=== PATIENT | female | born 1975 | race Hispanic/Latino ===

== ENCOUNTER 2024-09-22 23:29 | Emergency (ER) | payer SELFPAY ==
[~2024-09-22] VITALS: Ht 157.5 cm; Wt 88.7 kg
[2024-09-22] MEDS ORDERED: IBUPROFEN 600 MG TAB ONE (23:41)
[2024-09-22] MEDS: IBUPROFEN 600 MG TAB PO STA (23:51)
[2024-09-23 00:38] LABS: BILIRUBIN,URINE NEGATIVE (NEGATIVE); CLARITY,URINE CLEAR (CLEAR); COLOR,URINE YELLOW (YELLOW); GLUCOSE, URINE NEGATIVE (NEGATIVE); KETONES,URINE NEGATIVE (NEGATIVE); LEUKOCYTE ESTERASE ,URINE NEGATIVE (NEGATIVE); NITRITE,URINE NEGATIVE (NEGATIVE); PH,URINE 6 (5 - 7); PROTEIN,URINE DIPSTICK NEGATIVE (NEGATIVE); URINE UROBILINOGEN 0.2 mg/dL (0.2 - 1)
[2024-09-23 00:39] LABS: PREGNANCY TEST, URINE NEGATIVE (NEGATIVE); WBC,URINE (MAN) 0-5 /HPF (0-5)
[2024-09-23 00:47] LABS: BACTERIA,URINE MODERATE /HPF
[2024-09-23 00:48] LABS: EPITHELIAL CELLS,URINE MODERATE /LPF; MUCUS,URINE FEW
[2024-09-23 02:11] VITALS: PULSE 81; RESP 17; TEMP 98.3; O2SAT 98
[2024-09-23] MEDS ORDERED: PENICILLIN V P500 MG PO (02:45)
== END 2024-09-23 02:51 | disposition home or self-care (01) ==
LOC: ER 23:33
DX: R05.9 Cough, unspecified (principal); J02.0 Streptococcal pharyngitis; R51.9 Headache, unspecified; R53.81 Other malaise
CPT/HCPCS: 71046; 81001; 81025; 83518; 99283